=== PATIENT | female | born 2005 | race Caucasian/White ===

== ENCOUNTER 2025-07-03 08:02 | Emergency (ER) | payer OTHER, SELFPAY ==
[2025-07-03 08:18] VITALS: BP 97/67; PULSE 114; RESP 18; TEMP 37.2; O2SAT 100
--- NOTE | 2025-07-03 08:29 | ED_ITS ---
HPI - Nausea/Vomiting/Diarrhea General Chief complaint: Nausea/Vomiting/Diarrhea Stated complaint: Vomiting/Diarrhea Time Seen by Provider: 07/03/25 08:19 Source: patient, family (mother) and RN notes reviewed Mode of arrival: ambulatory Limitations: no limitations History of Present Illness HPI Narrative: Patient presents today complaining of 4 episodes of vomiting last night, last was 3 hours prior to arrival. She also had 2 episodes of diarrhea, last was 1 hour prior to arrival. Denies abdominal pain, fever. Believe she has food poisoning, as her brother also has vomiting as well. Family ate at a local [place] restaurant last night. She has not tried to drink any fluids since the last vomiting episode. Related Data Allergies Allergy/AdvReac Type Severity Reaction Status Date / Time No Known Allergies Allergy Mild Verified 07/03/25 08:20 PMF Comments At time of signature, I have reviewed and agree with nursing past medical, surgical, social and family history unless otherwise noted. Please see nursing chart for further information. There is no relevant family history pertinent to the presenting complaint Exam Narrative: GENERAL: Well-appearing, well-nourished, and in no acute distress. HEAD: Normocephalic, atraumatic. EYES: EOMI. No redness or drainage. Conjunctivae normal. ENT: Mucous membranes pink and slightly dry. . Throat normal. Uvula midline. NECK: Normal AROM. Supple. No lymphadenopathy. CHEST: No respiratory distress. Clear to auscultation. HEART: Regular rhythm. Tachycardic. No murmur appreciated. Normal peripheral pulses. ABDOMEN: Soft, nontender, nondistended, normal active bowel sounds. EXTREMITIES: Normal range of motion. No edema. SKIN: Warm, dry, no rash. Capillary refill normal. Normal skin turgor. NEURO: No focal deficits. Alert and oriented x3. Gait steady. PSYCH: Normal affect. No signs of depression or anxiety. Course Course Emergency Course: 914- Patient keeping down ice after Zofran. Feeling better. Beninese ice given. Will recheck soon. Patient kept down swazi ice and water. Ready for discharge. Level of Care: Express Care Visit Vital Signs Vital signs: Vital Signs Temperature 98.9 F 07/03/25 08:18 Pulse Rate 114 H 07/03/25 08:18 Respiratory Rate 18 07/03/25 08:18 Blood Pressure 97/67 L 07/03/25 08:18 Pulse Oximetry 100 07/03/25 08:18 Temperature 98.9 F 07/03/25 08:18 Pulse Rate 114 H 07/03/25 08:18 Respiratory Rate 18 07/03/25 08:18 Blood Pressure 97/67 L 07/03/25 08:18 Pulse Oximetry 100 07/03/25 08:18 Reviewed MDM - Nausea/Vomiting/Diarrhea MDM Narrative Medical decision making narrative: 19-year-old female patient presents today with vomiting x4 last night and 2 episodes of diarrhea. Denies fever abdominal pain. States her family when out for [place] food last night and brother had similar symptoms after eating. Patient's exam was normal aside from a slightly dry oral mucosa and mild tachycardia, likely due to dehydration. Dose of Zofran given and patient was a ble to eat some ice and an swazi ice and was feeling better upon reevaluation. Patient has some slight tachycardia upon arrival, but rest of vitals were normal. Discharged home with prescription for Zofran and instructions to advance diet slowly as tolerated. Strict ED precautions provided as well. Patient and mother agree with plan. Differential Diagnosis Differential diagnosis: Likely food poisoning, gastroenteritis and dehydration Critical Care Time Critical Care Time Critical Care Time: No Discharge Plan Discharge Clinical Impression: Food poisoning Patient Disposition: Home Condition: Stable Instructions: Dehydration (ED), Food Poisoning (ED) Additional Instructions: Please take the Zofran as prescribed for your nausea and vomiting. If you continue to keep down liquids well, advanced to bland foods this evening as tolerated such as toast, rice, crackers. If you continue to vomit even with the Zofran, please go to the ER for further evaluation and treatment. Patient Language: Belarusian Prescriptions: New ondansetron 8 mg tablet,disintegrating 8 mg PO Q4-6H PRN (Reason: nausea and vomiting) Qty: 20 0RF Follow-up/Referrals: PHYSICIAN,[employer] [Primary Care Provider, Internal Medicine] Stand Alone Forms: Work/School Release IP Time of Disposition: :20
[2025-07-03] MEDS: ONDANSETRON HCL ODT 4 MG TABLET 8 MG SUBLINGUAL (08:34)
--- NOTE | 2025-07-03 08:59 | PC.NURSE ---
0823 patient provided cup of ice chips-pt instructed to take sparingly at first.
== END 2025-07-03 09:27 | disposition home or self-care (01) ==
PROVIDERS: Emergency Provider Nurse Practitioner
DX: A05.9 Bacterial foodborne intoxication, unspecified (principal)
CPT/HCPCS: 99203; A9270; G0463